=== PATIENT | male | born 1955 | race Caucasian/White ===

== ENCOUNTER → 2016-08-05 | Outpatient (CLI) | payer OTHER ==
[~2016-08-05] MED LIST: ATEN50TA8; FELO5TAB; HYDC25 PO
[2016-08-05 14:20] LABS: ALT/SGPT 97 U/L (12-78); BLOOD UREA NITROGEN 16 mg/dl (7-18); BUN/CREATININE RATIO 16.4 (10-20); CALCIUM 10.3 mg/dl (8.5-10.1); CARBON DIOXIDE 27 mmol/L (21-32); CHLORIDE 104 mmol/L (98-107); CHOLESTEROL 157 mg/dl (0-200); CREATININE 0.95 mg/dl (0.60-1.40); GLUCOSE 113 mg/dl (70-99); POTASSIUM 3.4 mmol/L (3.5-5.1); SODIUM 142 mmol/L (136-145); TRIGLYCERIDES 148 mg/dl (0-150); VERY LOW DENSITY LIPOPROT CALC 30 mg/dl
[2016-08-05 14:23] LABS: ALB/GLOB RATIO 1.3 (0.9-2); ALKALINE PHOSPHATASE 99 U/L (45-117); AST/SGOT 56 U/L (15-37); CHOLESTEROL/HDL RATIO 3.7; HDL CHOLESTEROL 43 mg/dl; LDL CHOLESTEROL CALCULATED 84 mg/dl
== END | disposition home or self-care (01) ==
LOC: C.LABBC 09:44
PROVIDERS: ATTEND Internal Medicine
DX: K76.0 Fatty (change of) liver, not elsewhere classified (principal); I10 Essential (primary) hypertension

== ENCOUNTER → 2016-08-08 | Outpatient (CLI) | payer OTHER ==
[2016-08-08 11:34] LABS: ESTIMATED AVERAGE GLUCOSE 108 mg/dl; HA1C FLAG Normal (Normal)
[2016-08-08 11:58] LABS: ALB/GLOB RATIO 1.2 (0.9-2); ALKALINE PHOSPHATASE 112 U/L (45-117); ALT/SGPT 101 U/L (12-78); AST/SGOT 59 U/L (15-37); BLOOD UREA NITROGEN 18 mg/dl (7-18); CALCIUM 10.7 mg/dl (8.5-10.1); CARBON DIOXIDE 27 mmol/L (21-32); CHLORIDE 105 mmol/L (98-107); CREATININE 0.94 mg/dl (0.60-1.40); GLUCOSE 116 mg/dl (70-99); POTASSIUM 3.4 mmol/L (3.5-5.1); SODIUM 141 mmol/L (136-145)
== END | disposition home or self-care (01) ==
LOC: C.LABBC 08:17
PROVIDERS: ATTEND Internal Medicine Geriatric Medicine
DX: R73.9 Hyperglycemia, unspecified (principal); K76.0 Fatty (change of) liver, not elsewhere classified; I10 Essential (primary) hypertension; E87.6 Hypokalemia

== ENCOUNTER → 2016-12-04 | Outpatient (CLI) | payer OTHER ==
[2016-12-04 13:57] LABS: HEPATITIS B AB NEG
[2016-12-04 14:11] LABS: ALT/SGPT 97 U/L (12-78); AST/SGOT 64 U/L (15-37); BLOOD UREA NITROGEN 18 mg/dl (7-18); CALCIUM 9.9 mg/dl (8.5-10.1); CARBON DIOXIDE 29 mmol/L (21-32); CHLORIDE 107 mmol/L (98-107); GLUCOSE 94 mg/dl (70-99); POTASSIUM 3.7 mmol/L (3.5-5.1); SODIUM 143 mmol/L (136-145)
[2016-12-04 14:13] LABS: ALB/GLOB RATIO 1.2 (0.9-2); ALKALINE PHOSPHATASE 89 U/L (45-117); FERRITIN 181.8 ng/ml (8.0-388.0); TOTAL IRON BINDING CAPACITY 351 mcg/dl (250-450)
[2016-12-06 12:52] LABS: SM.RNP ANTIBODY <1.0 NEG AI (<1.0 NEG); Sm Antibody <1.0 NEG AI (<1.0 NEG)
== END | disposition home or self-care (01) ==
LOC: C.LABBC 09:12
PROVIDERS: ATTEND Internal Medicine
DX: I10 Essential (primary) hypertension (principal); Z12.5 Encounter for screening for malignant neoplasm of prostate

== ENCOUNTER → 2017-01-16 | Outpatient (CLI) | payer OTHER ==
[2017-01-16 12:32] LABS: CALCIUM 11.4 mg/dl (8.5-10.1)
[2017-01-16 12:46] LABS: THYROID STIMULATING HORMONE 1.93 uIu/ml (0.300-4.500)
--- NOTE | 2017-01-22 09:52 | CODING QUERY MEDICAL NECESSITY ---
SUPPORTING DIAGNOSIS NEEDED Dr. Morales, A supporting diagnosis is required for the test/procedure performed on this patient in order for us to be reimbursed by the patient's insurance. Please provide a supporting diagnosis for the following test/procedure listed below next to the test name along with your signature. *If there is no additional diagnosis for this patient that would support the following test/procedure please document that below next to the test/procedure. Test(s)/Procedure(s) that require a supporting diagnosis: * VITAMIN D ASSAY DIAGNOSIS: DATE OF SERVICE: 01/16/17 Provider Signature: Date: Thank you Noel Song [facility] Information Management Once completed, please kindly fax back to [phone] For questions please call [phone]
== END | disposition home or self-care (01) ==
LOC: C.LAB1850 09:58
PROVIDERS: ATTEND Internal Medicine Endocrinology, Diabetes & Metabolism
DX: E83.52 Hypercalcemia (principal); E55.9 Vitamin D deficiency, unspecified

== ENCOUNTER → 2017-01-22 | Outpatient (CLI) | payer OTHER ==
[2017-01-22 11:26] LABS: CALCIUM 10.1 mg/dl (8.5-10.1)
[2017-01-22 11:34] LABS: CALCIUM URINE 8.6 mg/dl
== END | disposition home or self-care (01) ==
LOC: C.LABBC 07:49
PROVIDERS: ATTEND Internal Medicine Endocrinology, Diabetes & Metabolism
DX: E83.52 Hypercalcemia (principal)

== ENCOUNTER → 2017-02-05 | Outpatient (CLI) | payer OTHER | END | disposition home or self-care (01) | LOC: C.MAMM 13:43 | PROVIDERS: ATTEND Internal Medicine Endocrinology, Diabetes & Metabolism | DX: E83.52 Hypercalcemia (principal); E55.9 Vitamin D deficiency, unspecified ==

== ENCOUNTER → 2017-02-19 | Outpatient (CLI) | payer OTHER ==
[2017-02-19 12:01] LABS: CALCIUM 10.2 mg/dl (8.5-10.1)
[2017-02-19 12:03] LABS: CALCIUM URINE 17.9 mg/dl
== END | disposition home or self-care (01) ==
LOC: C.LABBC 07:43
PROVIDERS: ATTEND Internal Medicine Endocrinology, Diabetes & Metabolism
DX: E83.52 Hypercalcemia (principal); Z87.442 Personal history of urinary calculi

== ENCOUNTER → 2017-03-27 | Outpatient (CLI) | payer OTHER ==
--- NOTE | 2017-03-27 22:04 | DIAGNOSTIC IMAGING REPORT ---
NUCLEAR MEDICINE PARATHYROID SCAN WITH SPECT IMAGING CLINICAL HISTORY: E83.52 Hypercalcemia COMPARISON STUDY: No previous studies for comparison. FINDINGS: The patient was injected with 20.7 mCi of technetium 99m Cardiolite. 15 minute and 3 hour images were acquired. SPECT imaging was performed. There is a persistent focus of subtle increased activity inferior to the lower pole the left lobe of the thyroid. This appears contiguous with the left innominate vein and may represent vascular activity. There are no other findings of significance. IMPRESSION: Persistent tiny focus of increased activity within the superior mediastinum, inferior to the lower pole of the left lobe of the thyroid. While an ectopic parathyroid adenoma cannot be excluded, vascular activity is favored. The examination is otherwise unremarkable. Electronically signed by: Cr Lang M.D. 03/27/2017 10:03 PM Dictated Date/Time: 03/27/2017 9:55 PM
== END | disposition home or self-care (01) ==
LOC: C.NUCL 16:13
PROVIDERS: ATTEND Internal Medicine Endocrinology, Diabetes & Metabolism
DX: E83.52 Hypercalcemia (principal)

== ENCOUNTER → 2017-06-13 | Outpatient (CLI) | payer OTHER ==
[2017-06-13 13:44] LABS: INR 1.1 (0.9-1.1); PARTIAL THROMBOPLASTIN RATIO 1.1; PROTHROMBIN TIME (PATIENT) 11.3 SECONDS (9.0-12.0)
[2017-06-13 13:55] LABS: ALT/SGPT 51 U/L (12-78); AST/SGOT 40 U/L (15-37); BLOOD UREA NITROGEN 15 mg/dl (7-18); BUN/CREATININE RATIO 15.1 (10-20); CALCIUM 10.5 mg/dl (8.5-10.1); CARBON DIOXIDE 31 mmol/L (21-32); CHLORIDE 104 mmol/L (98-107); CREATININE 0.99 mg/dl (0.60-1.40); GLUCOSE 88 mg/dl (70-99); POTASSIUM 4.2 mmol/L (3.5-5.1); SODIUM 139 mmol/L (136-145)
[2017-06-13 13:58] LABS: ALB/GLOB RATIO 1.3 (0.9-2); ALKALINE PHOSPHATASE 91 U/L (45-117)
== END | disposition home or self-care (01) ==
LOC: C.LABBC 10:10
PROVIDERS: ATTEND Internal Medicine
DX: K76.0 Fatty (change of) liver, not elsewhere classified (principal); R73.9 Hyperglycemia, unspecified; Z87.442 Personal history of urinary calculi; E21.3 Hyperparathyroidism, unspecified; E83.52 Hypercalcemia; I10 Essential (primary) hypertension

== ENCOUNTER → 2017-09-05 | Outpatient (CLI) | payer OTHER | END | disposition home or self-care (01) | LOC: C.PATHSPEC 14:03 | PROVIDERS: ATTEND Dermatology | DX: L98.8 Other specified disorders of the skin and subcutaneous tissue (principal) ==

== ENCOUNTER → 2017-10-13 | Outpatient (CLI) | payer OTHER ==
--- NOTE | 2017-10-13 08:26 | DIAGNOSTIC IMAGING REPORT ---
ABDOMEN LIMITED (US) CLINICAL HISTORY: 62 years-old Male presenting with K76.[address].[id number]. TECHNIQUE: Real-time grayscale and limited color Doppler ultrasound imaging of the abdomen limited to the right upper quadrant was performed. COMPARISON: CT from 03/29/2007. FINDINGS: Pancreas: Visualized portions of the pancreatic head and body normal. Liver: Mildly hyperechogenic parenchyma, although the right hemidiaphragm remains visible, likely indicating mild steatosis. The liver measures 14.9 cm in maximal sagittal dimension. 1.5 cm anechoic lesion in the posterior right hepatic lobe, likely hepatic cyst. Main portal vein patent with normal directional flow. Biliary: No intrahepatic biliary ductal dilatation. Common bile duct measures up to 3 mm in diameter. Gallbladder: Several subcentimeter hyperechogenic foci are adherent to the wall and do not demonstrate posterior shadowing. These likely represent small cholesterol polyps. No gallstones identified. No gallbladder wall thickening, abnormal gallbladder distention, or pericholecystic fluid or inflammatory change. Right kidney: Diffuse cortical thinning could suggest chronic renal disease. Additionally, a 3.4 cm anechoic grossly simple appearing cyst noted at the upper pole. No hydronephrosis. Ascites: None. Other: None. IMPRESSION: 1. Hepatic steatosis. Correlate with liver function tests to exclude steatohepatitis as a cause for abdominal pain. 2. Subcentimeter cholesterol polyps in the gallbladder. 3. Suggestion of chronic medical renal disease. Electronically signed by: Fernando Alba M.D. 10/13/2017 8:25 AM Dictated Date/Time: 10/13/2017 8:22 AM
== END | disposition home or self-care (01) ==
LOC: C.ULTRBC 07:37
PROVIDERS: ATTEND Internal Medicine
DX: K76.0 Fatty (change of) liver, not elsewhere classified (principal)

== ENCOUNTER → 2018-03-09 | Outpatient (CLI) | payer OTHER ==
[2018-03-09 10:29] LABS: BASO % 0.8 %; BASO ABS # 0.03 K/uL (0-0.2); EOS % 2.7 %; HEMATOCRIT 44.1 % (42-52); HEMOGLOBIN 15.4 g/dL (14.0-18.0); LYMPH % 39.4 %; LYMPH ABS # 1.47 K/uL (1.2-3.4); MEAN CORPUSCULAR HEMOGLOBIN 31.4 pg (25-34); MEAN CORPUSCULAR HGB CONC 34.9 g/dl (32-36); MEAN PLATELET VOLUME 9.3 fL (7.4-10.4); MONO % 11.3 %; MONO ABS # 0.42 K/uL (0.11-0.59); NEUT % 45.8 %; NEUT ABS # 1.71 K/uL (1.4-6.5); PLATELET COUNT 119 K/uL (130-400); RED CELL DISTRIBUTION WIDTH CV 13.2 % (11.5-14.5); RED CELL DISTRIBUTION WIDTH SD 43.3 fL (36.4-46.3); WHITE BLOOD COUNT 3.73 K/uL (4.8-10.8)
== END | disposition home or self-care (01) ==
LOC: C.LABBC 08:34
PROVIDERS: ATTEND Internal Medicine
DX: D72.819 Decreased white blood cell count, unspecified (principal)